=== PATIENT | female | born 1950 | race Caucasian/White ===

== ENCOUNTER 2016-11-18 09:29 | Emergency (ER) | payer BC ==
[~2016-11-18] VITALS: Ht 172.7 cm; Wt 63.0 kg
[2016-11-18 09:48] VITALS: TEMP 36.7; Ht 172.7 cm; Wt 63.0 kg
--- NOTE | 2016-11-18 10:06 | EMERGENCY ROOM VISIT NOTE ---
History Report prepared by Regan: Silvia Amaya Under the Supervision of: Dr. Abdoulaye Larsen M.D. First contact with patient: 09:52 Chief Complaint: LEG PAIN,LEG INJURY Stated Complaint: LEFT LEG SWELLING, KNEE AND ANKLE SORE History of Present Illness The patient is a 65 year old female who presents to the Emergency Room with complaints of persistent left calf pain that began one week ago. She currently rates her discomfort as a 4/10 in severity. The patient states that last Monday she was at the gym exercising on a treadmill on an incline. She states that she suddenly had to leave the gym and states that the next day she developed left calf pain. The patient states that a few days ago she flew from [place] to [facility]. She states that she then drove from [facility] to [place]. The patient states that last evening she developed swelling to her left calf. She denies any injury to the area. The patient denies any history of a DVT. She denies being on any blood thinners. The patient states that she has been using Excedrin for her discomfort. She denies any chest pain or shortness of breath. Source of History: patient Onset: one week ago Position: other (left calf pain) Symptom Intensity: 4/10 Timing: other (persistent) Associated Symptoms: No SOB, No chest pain Review of Systems See HPI for pertinent positives & negatives. A total of 10 systems reviewed and were otherwise negative. Past Medical & Surgical Medical Problems: (1) Arthritis (2) Fibromyalgia Family History FHx: gallbladder disease Social History Smoking Status: Never Smoker Smokeless Tobacco Use: No Alcohol Use: occasionally Marital Status: Housing Status: lives with significant other Occupation Status: retired Current/Historical Medications Scheduled Carisoprodol (Soma), 350 MG PO DAILY Cholecalciferol (Vitamin D3), 400 UNITS PO DAILY Clonazepam (Klonopin), 1 MG PO BID Cyanocobalamin (Vitamin B12), 1,000 MCG PO 2XWK Duloxetine HCl (Cymbalta), 30 MG PO QPM Duloxetine Hcl (Cymbalta), 60 MG PO QAM Esomeprazole Magnesium (Nexium), 40 MG PO DAILY Fish Oil ([place]-3), 1 CAP PO DAILY Hydromorphone HCl (Hydromorphone HCl ER), 12 MG PO HS Levothyroxine Sodium (Levothyroxine Sodium), 25 MCG PO DAILY Melatonin (Melatonin Maximum Strengt), 5 MG PO HS Topiramate (Topiramate), 25 MG PO BID Trazodone Hcl (Trazodone), 100 MG PO HS Vitamin E (E 1000), 1,000 UNITS PO DAILY Scheduled PRN Oxycodone Hcl (Oxycontin), 20 MG PO Q4H PRN for Pain Zolpidem Tartrate (Ambien), 10 MG PO HS PRN for . Allergies Coded Allergies: Penicillins (Unverified Allergy, Unknown, ., 11/18/16) Risperidone (Unverified Allergy, Unknown, ., 11/18/16) Sulfa Antibiotics (Unverified Allergy, Unknown, ., 11/18/16) Physical Exam Vital Signs Date Time Temp Pulse Resp B/P Pulse Ox O2 Delivery O2 Flow Rate FiO2 11/18/16 12:40 68 18 126/82 94 11/18/16 11:40 78 18 142/92 94 Room Air 11/18/16 09:48 36.7 110 18 129/74 94 Room Air Physical Exam GENERAL: Patient is in no acute distress. HEENT: No acute trauma, normocephalic atraumatic, mucous membranes moist, no nasal congestion, no scleral icterus. NECK: No stridor, no adenopathy, no meningismus, trachea is midline. LUNGS: Clear to auscultation bilaterally, no wheeze, no rhonchi, breath sounds equal. HEART: Without murmurs gallops or rubs, regular rate and rhythm. ABDOMEN: Soft, nontender, bowel sounds positive, no hernias, no peritonitis. EXTREMITIES: Strong distal left dorsalis pedis pulse, no left lower extremity cellulitis, left leg is edematous compared to the right, appears to be a hematoma to left proximal calf, and lateral ankle. No joint discomfort with movement. The ankle is nontender, the calf is tender to palpation. NEUROLOGIC: Oriented x 3, no acute motor or sensory deficits, no focal weakness. SKIN: No rash, no jaundice, no diaphoresis. Medical Decision & Procedures ER Provider Diagnostic Interpretation: US results as stated below per my review and radiologist interpretation: ULTRASOUND LEFT LOWER EXTREMITY VENOUS CLINICAL HISTORY: Left leg swelling. COMPARISON STUDY: No priors. TECHNIQUE: Real-time, grayscale, and color Doppler sonography of the deep veins of the left lower extremity was performed from the inguinal crease to the calf. Compression and augmentation were utilized. FINDINGS: There is no sonographic evidence of deep venous thrombosis identified in the left lower extremity. The common femoral, superficial femoral, and popliteal veins are patent and normally compressible. The greater saphenous vein and the profunda femoris vein at the junction with the common femoral vein are clear. The visualized calf veins are patent. A complex nonvascular structure in the popliteal fossa measures 6.7 x 2.7 x 5.1 cm. IMPRESSION: 1. There is no sonographic evidence of deep venous thrombosis identified in the left lower extremity. 2. A complex nonvascular lobulated structure in the popliteal fossa measures up to 6.7 cm. This likely represents a complex popliteal cyst. Clinical correlation will be required. A 3 month follow-up ultrasound is recommended to document resolution due to complex appearance. Electronically signed by: Abdoulaye Gaitan M.D. 11/18/2016 12:06 PM Dictated Date/Time: 11/18/2016 12:04 PM ED Course 0954: The patient was evaluated in room B9. A complete history and physical exam was performed. 1225: I reevaluated the patient and she is resting comfortably. I discussed the exam findings with her and I discussed the treatment plan. She verbalized complete understanding and agreement. She is ready to go home. Medical Decision The patient is a 65 year old female who presents to the ED with complaints of left calf pain. Differential diagnoses considered include hematoma, muscle tear , calf strain, cellulitis, DVT. The patient presents with left leg swelling and pain. She has been on a plane and has traveled a good distance by car. No history of DVT. Left lower external ultrasound does not show DVT but there is a diamond's cyst present. The patient has a Diamond's cyst and some hematoma in the leg, this has caused her difficulty. She was reassured. She is being discharged with outpatient follow-up. Impression Primary Impression: Left leg swelling Additional Impression: Bakers cyst Scribe Attestation The scribe's documentation has been prepared under my direction and personally reviewed by me in its entirety. I confirm that the note above accurately reflects all work, treatment, procedures, and medical decision making performed by me. Departure Information Dispostion Home / Self-Care Referrals No Doctor, Assigned (PCP) Forms HOME CARE DOCUMENTATION FORM, IMPORTANT VISIT INFORMATION Patient Instructions My [facility] Additional Instructions elevation ice or heat--which ever feels better watch for redness or fever see [facility] when you return home walk when on the plane---stop and walk every hour or so when driving Problem Qualifiers
[2016-11-18] MEDS ORDERED: CARI350T28 PO (10:34)
[2016-11-18] MEDS ORDERED: CLON1TAB3 PO (10:34)
[2016-11-18] MEDS ORDERED: LEVO25TA5 PO (10:34)
[2016-11-18] MEDS ORDERED: ZOLP10TA PO (10:34)
[2016-11-18] MEDS ORDERED: OMEG10007 PO (10:34)
[2016-11-18] MEDS ORDERED: CYAN100020 PO (10:34)
[2016-11-18] MEDS ORDERED: TRAZ100T29 PO (10:34)
[2016-11-18] MEDS ORDERED: TPM25 PO (10:34)
[2016-11-18] MEDS ORDERED: CYM/30 PO (10:34)
[2016-11-18] MEDS ORDERED: OXYC20TA50 PO (10:34)
[2016-11-18] MEDS ORDERED: [UNRECOGNIZED DRUG - CODE] PO (10:34)
[2016-11-18] MEDS ORDERED: CHOL1CAP30 PO (10:34)
[2016-11-18] MEDS ORDERED: NXM/40 PO (10:34)
[2016-11-18] MEDS ORDERED: VITA1CAP4 PO (10:34)
[2016-11-18] MEDS ORDERED: DULO60CA44 PO (10:34)
[2016-11-18] MEDS ORDERED: MELATAB2 PO (10:37)
--- NOTE | 2016-11-18 12:08 | DIAGNOSTIC IMAGING REPORT ---
ULTRASOUND LEFT LOWER EXTREMITY VENOUS CLINICAL HISTORY: Left leg swelling. COMPARISON STUDY: No priors. TECHNIQUE: Real-time, grayscale, and color Doppler sonography of the deep veins of the left lower extremity was performed from the inguinal crease to the calf. Compression and augmentation were utilized. FINDINGS: There is no sonographic evidence of deep venous thrombosis identified in the left lower extremity. The common femoral, superficial femoral, and popliteal veins are patent and normally compressible. The greater saphenous vein and the profunda femoris vein at the junction with the common femoral vein are clear. The visualized calf veins are patent. A complex nonvascular structure in the popliteal fossa measures 6.7 x 2.7 x 5.1 cm. IMPRESSION: 1. There is no sonographic evidence of deep venous thrombosis identified in the left lower extremity. 2. A complex nonvascular lobulated structure in the popliteal fossa measures up to 6.7 cm. This likely represents a complex popliteal cyst. Clinical correlation will be required. A 3 month follow-up ultrasound is recommended to document resolution due to complex appearance. Electronically signed by: Abdoulaye Gaitan M.D. 11/18/2016 12:06 PM Dictated Date/Time: 11/18/2016 12:04 PM
[2016-11-18 12:40] VITALS: BP 126/82; PULSE 68; O2SAT 94
== END 2016-11-18 12:54 | disposition home or self-care (01) ==
LOC: C.EDB 09:31
DX: M79.89 Other specified soft tissue disorders (principal); M71.22 Synovial cyst of popliteal space [Baker], left knee; M79.7 Fibromyalgia; M19.90 Unspecified osteoarthritis, unspecified site; Z79.899 Other long term (current) drug therapy; Z83.79 Family history of other diseases of the digestive system